=== PATIENT | female | born 1955 | race Two or more races ===

== ENCOUNTER 2020-11-08 14:18 | Emergency (ER) | payer MEDICAID, OTHER ==
[~2020-11-08] VITALS: Ht 162.6 cm; Wt 68.0 kg
[2020-11-08 14:25] VITALS: BP 146/80
== END 2020-11-08 15:22 | disposition left against medical advice (07) ==
LOC: EDBD 14:18 → ER 14:18
DX: M79.601 Pain in right arm (principal); M79.10 Myalgia, unspecified site; Z53.21 Procedure and treatment not carried out due to patient leaving prior to being seen by health care provider; V49.9XXA Car occupant (driver) (passenger) injured in unspecified traffic accident, initial encounter; Y93.89 Activity, other specified; Y92.89 Other specified places as the place of occurrence of the external cause; Y99.8 Other external cause status

== ENCOUNTER 2023-12-16 10:19 | Emergency (ER) | payer OTHER, MEDICAID ==
[~2023-12-16] VITALS: Ht 160 cm; Wt 68.0 kg
[2023-12-16 10:19] VITALS: PULSE 0; RESP 20; O2SAT 0
[2023-12-16] MEDS ORDERED: CALCIUM CHLOR(10%) 100MG/ML 10ML SYRINGE IV ONE (10:20)
== END 2023-12-16 10:26 ==
LOC: ER 10:19 → EDBD 10:19 → ER 10:26
DX: I46.9 Cardiac arrest, cause unspecified (principal); I10 Essential (primary) hypertension
CPT/HCPCS: 92950; 99285; J0171; J2310